=== PATIENT | male | born 1960 | race African-American/Black ===

== ENCOUNTER 2018-04-24 22:54 | Inpatient (IN) | payer MEDICARE, MEDICAID ==
[~2018-04-24] VITALS: Ht 172.7 cm; Wt 95.7 kg
[2018-04-25] MEDS ORDERED: CLONIDINE 0.1MG TABLET PO ONE
[2018-04-25] MEDS ORDERED: PREDNISONE 20MG TABLET PO STA
[2018-04-25] MEDS ORDERED: ALBUTEROL (0.083%) 2.5MG/3ML NEB HHN STA
[2018-04-25] MEDS ORDERED: ASPIRIN 81MG TABLET PO ONE
[2018-04-25] MEDS ORDERED: IPRATROPIUM BROMIDE (0.02%) 0.5MG/2.5ML NEB HHN STA
[2018-04-25] MEDS ORDERED: SODIUM CHLORIDE 0.9% 1,000 ML IV ONE
[2018-04-25 00:44] LABS: HEMATOCRIT. 47.3 % (42.0-52.0); HEMOGLOBIN. 15.7 g/dL (14.0-18.0); MEAN CORPUSCULAR HEMOGLOBIN 32.8 pg (28.0-32.0); MEAN CORPUSCULAR VOLUME 98.5 fL (80.0-94.0); MEAN PLATELET VOLUME 7.4 fl (7.4-10.4); PLATELET 249 x1000/uL (130-400); RED CELL DISTRIBUTION WIDTH 18.5 % (11.6-14.6)
[2018-04-25 00:50] LABS: CHLORIDE 106 mEq/L (98-107)
[2018-04-25 00:54] LABS: ETHANOL BLOOD < 10 mg/dL
[2018-04-25 01:43] LABS: PLATELET ESTIMATE NORMAL
[2018-04-25] MEDS ORDERED: ACETAMINOPHEN 325MG TABLET PO PRN (04:45)
[2018-04-25] MEDS ORDERED: HYDROMORPHONE HCL/PF 2MG/ML CPJ IV PRN (04:45)
[2018-04-25] MEDS ORDERED: CLONIDINE 0.1MG TABLET PO PRN (04:45)
[2018-04-25] MEDS ORDERED: IPRATROPIUM/ALBUTEROL 0.5-3(2.5)MG/3ML NEB INH PRN (04:45)
[2018-04-25] MEDS ORDERED: HYDROCODONE/ACETAMINOPHEN 5/325MG TABLET PO PRN (04:45)
[2018-04-25] MEDS ORDERED: ONDANSETRON HCL 4MG/2ML INJ IV PRN (04:45)
[2018-04-25 05:00] VITALS: BP 158/96
[2018-04-25 05:43] VITALS: BP 155/86
[2018-04-25] MEDS ORDERED: HYDR-4009 PO (06:21)
[2018-04-25] MEDS ORDERED: atripla PO (06:21)
[2018-04-25] MEDS ORDERED: MONT10TA21 PO (06:21)
[2018-04-25] MEDS ORDERED: PSEU120T56 MT (06:21)
[2018-04-25] MEDS ORDERED: ROPI5TAB3 MT (06:21)
[2018-04-25] MEDS ORDERED: QUET400T MT (06:21)
[2018-04-25] MEDS ORDERED: AMLO-79 PO (06:21)
[2018-04-25] MEDS ORDERED: AZEL205. BOTHNSTRLS (06:21)
[2018-04-25] MEDS ORDERED: NALO25TA PO (06:21)
[2018-04-25] MEDS ORDERED: ZOLP10TA2 MT (06:21)
[2018-04-25] MEDS ORDERED: DIAZ10TA4 PO (06:21)
[2018-04-25] MEDS ORDERED: OXYC30TA86 MT (06:21)
[2018-04-25] MEDS ORDERED: TAMS-11 PO (06:21)
[2018-04-25 08:00] VITALS: BP 120/93
[2018-04-25] MEDS ORDERED: DEXTROSE 50% WATER 50ML SYRINGE IV PRN (08:30)
[2018-04-25] MEDS ORDERED: ASPIRIN 81MG EC TABLET PO SCH (09:00)
[2018-04-25] MEDS ORDERED: AMLODIPINE 10MG TABLET PO SCH (09:00)
[2018-04-25 12:00] VITALS: BP 138/93
[2018-04-25] MEDS ORDERED: INFLUENZA VIRUS VACCINE(AFLURIA) 0.5ML SYR IM ONE (12:00)
[2018-04-25] MEDS: INSULIN LISPRO 100 UNITS/ML SUBCUT SCH ×2 (12:15→17:15)
[2018-04-25] MEDS: BLOOD SUGAR DIAGNOSTIC STRIP TEST SCH ×2 (12:27→16:45)
[2018-04-25 16:00] VITALS: BP 148/105
[2018-04-25 16:48] VITALS: BP 139/80
== END 2018-04-25 18:10 | disposition home or self-care (01) | DRG 313 ==
LOC: ER 22:54 → 5WST 04-25 01:13 → EDBEDREQ 04-25 01:15 → ENRESERV 04-25 02:19
PROVIDERS: ADMIT Hospitalist; ATTEND Hospitalist
DX: R07.89 Other chest pain (principal); E11.9 Type 2 diabetes mellitus without complications; I10 Essential (primary) hypertension; Z79.899 Other long term (current) drug therapy
CPT/HCPCS: 36415; 71045; 82962; 83605; 83880; 84484; 93005; 93970; 96360; 96361; 99285; G0482; J7030; J7512; J7611

== ENCOUNTER 2019-07-19 01:44 | Emergency (ER) | payer MEDICARE, MEDICAID ==
[~2019-07-19] VITALS: Ht 172.7 cm; Wt 96.0 kg
[~2019-07-19 01:44] MED LIST: AMLO-79 PO; AZEL205. BOTHNSTRLS; DIAZ10TA4 PO; HYDR-4009 PO; MONT10TA21 PO; NALO25TA PO; OXYC30TA86 MT; PSEU120T56 MT; QUET400T MT; ROPI5TAB3 MT; TAMS-11 PO; ZOLP10TA2 MT; atripla PO
[2019-07-19] MEDS ORDERED: NALOXONE HCL 0.4 MG/ML 1ML VIAL IV PRN (02:00)
[2019-07-19 02:37] LABS: CHLORIDE 109 mEq/L (98-107)
[2019-07-19 02:38] LABS: BASOPHILS % 0.7 % (0.0-2.0); EOSINOPHILS % 1.5 % (0.0-5.0); HEMATOCRIT. 43.3 % (42.0-52.0); HEMOGLOBIN. 14.6 g/dL (14.0-18.0); LYMPHOCYTES % 30.5 % (20.0-50.0); MEAN CORPUSCULAR VOLUME 94.7 fL (80.0-94.0); MEAN PLATELET VOLUME 7.8 fl (7.4-10.4); MONOCYTES % 8.3 % (2.0-8.0); PLATELET 207 x1000/uL (130-400); RED BLOOD CELL COUNT 4.57 mill/uL (4.7-6.1); RED CELL DISTRIBUTION WIDTH 16.2 % (11.6-14.6)
[2019-07-19 02:40] LABS: ETHANOL BLOOD 48 mg/dL
[2019-07-19 05:14] VITALS: BP 110/64
== END 2019-07-19 05:22 | disposition home or self-care (01) ==
LOC: ER 01:44
DX: T40.0X1A Poisoning by opium, accidental (unintentional), initial encounter (principal); F10.129 Alcohol abuse with intoxication, unspecified; Y90.2 Blood alcohol level of 40-59 mg/100 ml; E11.9 Type 2 diabetes mellitus without complications; I10 Essential (primary) hypertension; F14.10 Cocaine abuse, uncomplicated; F12.10 Cannabis abuse, uncomplicated; Z79.899 Other long term (current) drug therapy
CPT/HCPCS: 36415; 80053; 80320; 85025; 99283; G0480